=== PATIENT | male | born 1990 | race Caucasian/White ===

== ENCOUNTER 2025-01-05 13:01 | Emergency (ER) | payer OTHER ==
[~2025-01-05] VITALS: Ht 167.6 cm; Wt 79.0 kg
[2025-01-05 13:05] VITALS: TEMP 36.9; O2SAT 98
[2025-01-05] MEDS: TETANUS, DIPHTHERIA, PERTUSSIS VAC/PF 0.5ML (>10YR OLD) IM ONE (14:39)
[2025-01-05] MEDS: LIDOCAINE HCL/PF 1% 10 MG/ML 5ML VIAL INFIL ONE (14:40)
[2025-01-05] MEDS: MORPHINE SULFATE 4 MG/ML INJ (FOR IV/IM USE) IM ONE (14:40)
[2025-01-05] MEDS: ONDANSETRON HCL 4MG/2ML INJ IM ONE (14:40)
[2025-01-05] MEDS: CEFTRIAXONE 1GM/50ML 50 ML IV ONE (14:41)
[2025-01-05] MEDS: HYDROCODONE/ACETAMINOPHEN 5/325MG TABLET PO ONE (18:29)
[2025-01-05] MEDS ORDERED: KETO10TA2 MT (18:46)
[2025-01-05] MEDS ORDERED: ACET-2708 MT (18:46)
[2025-01-05] MEDS ORDERED: CEPH500C2 MT (18:46)
[2025-01-05 20:38] VITALS: BP 134/72; PULSE 80; RESP 19; O2SAT 99
== END 2025-01-05 20:39 | disposition home or self-care (01) ==
LOC: ER 13:01
DX: S61.202A Unspecified open wound of right middle finger without damage to nail, initial encounter (principal); Z89.021 Acquired absence of right finger(s); X58.XXXA Exposure to other specified factors, initial encounter; Y93.89 Activity, other specified; Y92.89 Other specified places as the place of occurrence of the external cause; Y99.8 Other external cause status
CPT/HCPCS: 73130; 90715; 96365; 96366; 96372; 99284; J0696; J2003; J2405; J2270; Z7610